=== PATIENT | male | born 1985 | race Hispanic/Latino ===

== ENCOUNTER 2017-08-06 03:53 | Emergency (ER) | payer BC ==
--- NOTE | 2017-08-06 04:16 | ED PDOC ---
HPI: Psych/Substance Abuse History Per: Patient History/Exam Limitations: no limitations Modifying Factor(s): Alcohol Additional Complaint(s): Patient was brought in for ETOH abuse, admits to drinking, denies drugs, denies injury. A&O x 3 at time of eval. Past Medical History Reviewed: Historical Data, Nursing Documentation, Vital Signs - Medical History PMH: No Chronic Diseases - Family History Family History: States: Unknown Family Hx Review of Systems ROS Statement: Except As Marked, All Systems Reviewed And Found Negative Physical Exam - Reviewed Nursing Documentation Reviewed: Yes Vital Signs Reviewed: Yes - Physical Exam Appears: Positive for: Well, Non-toxic, No Acute Distress Head Exam: Positive for: ATRAUMATIC, NORMAL INSPECTION, NORMOCEPHALIC Skin: Positive for: Normal Color, Warm, DRY Eye Exam: Positive for: EOMI, Normal appearance, PERRL ENT: Positive for: Normal ENT Inspection Neck: Positive for: Normal, Painless ROM Cardiovascular/Chest: Positive for: Regular Rate, Rhythm Respiratory: Positive for: CNT, Normal Breath Sounds Gastrointestinal/Abdominal: Positive for: Normal Exam, Soft Back: Positive for: Normal Inspection Extremity: Positive for: Normal ROM Neurologic/Psych: Positive for: Alert, custom harvester II-XII, Oriented. Negative for: Motor/Sensory Deficits, Aphasia, Facial Droop Medical Decision Making Medical Decision Making: Patient brought to ED for eval of alcohol intoxication, however currently calm, cooperative, steady gait, oriented. Stable for discharge. Disposition - Clinical Impression Clinical Impression: Alcohol intoxication - Disposition Disposition: Routine/Home Disposition Time: 04:16 Condition: STABLE Instructions: Alcohol Abuse and Alcoholism (DC)
[2017-08-06 04:18] VITALS: RESP 18
[2017-08-06 05:29] VITALS: BP 122/70; PULSE 86; TEMP 97.9; O2SAT 99
== END 2017-08-06 04:35 | disposition home or self-care (01) ==
LOC: H.ER 03:53
DX: F10.129 Alcohol abuse with intoxication, unspecified (principal)

== ENCOUNTER 2017-11-20 04:41 | Emergency (ER) | payer BC ==
[2017-11-20 05:12] VITALS: BMI 26.4
[2017-11-20 05:15] VITALS: BP 130/86; PULSE 82; RESP 18; TEMP 98.8; O2SAT 99
--- NOTE | 2017-11-20 06:11 | ED PDOC ---
HPI: Psych/Substance Abuse Time Seen by Provider: 11/20/17 04:52 Chief Complaint (Nursing): Alcohol Ingestion Chief Complaint (Provider): alcohol abuse History Per: Patient History/Exam Limitations: no limitations Additional Complaint(s): 32 yo male with no medical problems brought in for Alcohol abuse. Pt bleeding from lower lip and states he does not know how it happened. Pt states that he does not want to stay. Denies headache, N/V. Denies SI/HI Past Medical History Reviewed: Historical Data, Nursing Documentation, Vital Signs Vital Signs: Last Vital Signs Temp 98.8 F 11/20/17 05:12 Pulse 82 11/20/17 05:12 Resp 18 11/20/17 05:12 BP 130/86 11/20/17 05:12 Pulse Ox 99 11/20/17 05:12 - Medical History PMH: No Chronic Diseases Denies: Kidney Stones, Chronic Kidney Disease - Surgical History Surgical History: No Surg Hx - Family History Family History: States: Unknown Family Hx - Living Arrangements Living Arrangements: With Family - Social History Current smoker - smoking cessation education provided: No Alcohol: Occasional Drugs: Denies - Immunization History Hx Tetanus Toxoid Vaccination: No Hx Influenza Vaccination: No Hx Pneumococcal Vaccination: No - Allergies Allergies/Adverse Reactions: Allergies Allergy/AdvReac Type Severity Reaction Status Date / Time No Known Allergies Allergy Verified 11/20/17 04:56 Review of Systems ROS Statement: Except As Marked, All Systems Reviewed And Found Negative Constitutional: Negative for: Fever, Chills Gastrointestinal: Negative for: Nausea, Vomiting Genitourinary Male: Negative for: Dysuria, Frequency Skin: Positive for: Other Physical Exam - Reviewed Nursing Documentation Reviewed: Yes Vital Signs Reviewed: Yes - Physical Exam Appears: Positive for: Well, Non-toxic, No Acute Distress Head Exam: Positive for: ATRAUMATIC, NORMAL INSPECTION (No scalp hematoma ), NORMOCEPHALIC Skin: Positive for: Normal Color, Warm, DRY Eye Exam: Positive for: Normal appearance, EOMI, PERRL ENT: Positive for: Normal ENT Inspection Neck: Positive for: Normal, Painless ROM Cardiovascular/Chest: Positive for: Regular Rate, Rhythm Respiratory: Positive for: CNT, Normal Breath Sounds Back: Positive for: Normal Inspection Extremity: Positive for: Normal ROM Neurologic/Psych: Positive for: Alert - ECG O2 Sat by Pulse Oximetry: 99 Medical Decision Making Medical Decision Makin - Pt seen and examined by Dr. Medley. Pt stable to be discharged. Clear speech and steady gait. Disposition - Clinical Impression Clinical Impression: Alcohol abuse - Patient ED Disposition Is Patient to be Admitted: Transfer of Care - Disposition Disposition: Routine/Home Disposition Time: 06:30 Condition: STABLE Instructions: Effects of Alcohol on Your Health Forms: [facility] ([place])
== END 2017-11-20 06:36 | disposition home or self-care (01) ==
LOC: H.ER 04:41
DX: F10.10 Alcohol abuse, uncomplicated (principal)